=== PATIENT | male | born 1950 | race Caucasian/White ===

== ENCOUNTER 2017-11-04 08:21 | Day surgery (SDC) | payer MEDICARE ==
[~2017-11-04 08:21] MED LIST: ACETAMINOPHEN 1,000 MG/100 ML BTL IV ONE
[2017-11-04] MEDS ORDERED: ONDANSETRON HCL IV 4 MG/2 ML VIAL IVP ONE (08:22)
[2017-11-04] MEDS ORDERED: KETOROLAC 30 MG/ML VIAL IVP ONE (08:22)
[2017-11-04] MEDS ORDERED: FENTANYL PF 100MCG/2ML VIAL IV ONE (08:22)
[2017-11-04] MEDS ORDERED: LIDOCAINE 2% MDV (20MG/ML) 20ML VIAL IV ONE (08:22)
[2017-11-04] MEDS ORDERED: MIDAZOLAM HCL 2MG/2ML VIAL IV ONE (08:22)
[2017-11-04] MEDS ORDERED: PROPOFOL 10 MG/ML VIAL IV ONE (08:22)
[2017-11-04] MEDS ORDERED: SEVOFLURANE 250 ML INH ONE (08:22)
--- NOTE | 2017-11-07 13:20 | Operative Note ---
DATE OF SURGERY: 11/04/2017 Surgeon: Jorge Bolanos DO PREOPERATIVE DIAGNOSIS: Carpal tunnel syndrome of the left wrist. POSTOPERATIVE DIAGNOSIS: Carpal tunnel syndrome of the left wrist. OPERATION: Decompression of left median nerve of the wrist using 3.5 loop magnification. DESCRIPTION OF PROCEDURE: This 66-year-old male was taken to the operating room and placed in the supine position on the operating room table. General anesthesia was induced. The left upper extremity was elevated, prepped with Hibiclens, and draped in the usual sterile fashion. It was exsanguinated and the tourniquet inflated to 250 mmHg. A palmar incision was utilized following the hypothenar crease from the level of the base of the web space of the thumb to the flexor crease of the wrist. Dissection carried down through the skin and subcutaneous tissue. Palmar fascia divided in line with the skin incision. The flexor retinaculum was identified, punctured, split to its proximal margin and then with contents of the carpal tunnel under direct vision, the transverse carpal ligament was transected along its ulnar border. The radial flap was raised to expose the entire median nerve under the transverse carpal ligament. The nerve itself appeared to be relatively normal. The recurrent motor branch of the median nerve also appeared to be normal. The wound was irrigated and hemostasis obtained with the electrocautery after the tourniquet was released. The wound was closed with interrupted 6-0 nylon suture. Sterile dressings were applied with plaster splint immobilization with the wrist in slight posterior flexion and the thumb in an adducted position. CC: HERMILO Prater
== END 2017-11-04 11:10 | disposition home or self-care (01) ==
LOC: SUR 08:21
PROVIDERS: ATTEND Orthopaedic Surgery
DX: G56.02 Carpal tunnel syndrome, left upper limb (principal); I10 Essential (primary) hypertension
CPT/HCPCS: 64721; 01810; 93005; J1885; J2405; J3010